=== PATIENT | female | born 1950 | race Caucasian/White ===

== ENCOUNTER 2018-06-17 07:49 | Outpatient (CLI) | payer MEDICARE ==
--- NOTE | 2018-06-28 16:12 | ULT ---
LOWER EXTREMITY ARTERIAL EVALUATION: Date: 06/17/18 This is a lower extremity arterial evaluation of both lower extremities due to rest pain. Examination was performed with Doppler waveform analysis and segmental limb pressures. Examination of both legs revealed normal Doppler waveforms of both lower extremities at all levels te sted. Ankle-arm index was normal bilaterally at 1.2 and toe-brachial index was relatively well preser calvin. This study would not be consistent with any significant vascular claudication or ischemic rest pain, and would be considered a normal resting arterial study.
== END 2018-06-17 07:50 | disposition home or self-care (01) ==
LOC: ULT 07:49
PROVIDERS: ATTEND Family Medicine
DX: M79.673 Pain in unspecified foot (principal)
CPT/HCPCS: 93922